=== PATIENT | female | born 1990 | race Caucasian/White ===

== ENCOUNTER 2017-01-19 19:38 | Emergency (ER) | payer MEDICAID ==
[~2017-01-19] VITALS: Ht 182.9 cm; Wt 92.6 kg
[~2017-01-19 19:38] MED LIST: HYDR25CA PO; TRAZ100T15 PO
[2017-01-19 19:51] VITALS: BP 155/98
== END 2017-01-19 20:57 | disposition home or self-care (01) ==
LOC: ED 20:49
DX: J00 Acute nasopharyngitis [common cold] (principal); J02.9 Acute pharyngitis, unspecified; F41.1 Generalized anxiety disorder; I10 Essential (primary) hypertension
CPT/HCPCS: 99283

== ENCOUNTER 2017-04-29 15:21 | Emergency (ER) | payer MEDICAID ==
[~2017-04-29] VITALS: Ht 182.9 cm; Wt 90.2 kg
[2017-04-29 15:23] VITALS: BP 131/86
[2017-04-29] MEDS ORDERED: TRAZ100T15 PO (15:35)
[2017-04-29] MEDS ORDERED: HYDR25CA PO (15:35)
[2017-04-29] MEDS ORDERED: CEFAZOLIN 1,000 MG ONE ×2 (15:47→15:49)
[2017-04-29] MEDS ORDERED: HYDROcodone/APAP 5/325 TABLET ONE (15:47)
[2017-04-29] MEDS ORDERED: LIDOCAINE 1%, 20ML ONE (15:47)
[2017-04-29] MEDS ORDERED: CEFAZOLIN 1,000 MG IM ONE (16:00)
[2017-04-29] MEDS ORDERED: LIDOCAINE 1%, 20ML SQ ONE (16:00)
[2017-04-29] MEDS ORDERED: HYDROcodone/APAP 5/325 TABLET PO ONE (16:00)
== END 2017-04-29 17:00 | disposition home or self-care (01) ==
LOC: ED 16:30
DX: L02.512 Cutaneous abscess of left hand (principal); I10 Essential (primary) hypertension; F17.210 Nicotine dependence, cigarettes, uncomplicated
CPT/HCPCS: 10060; 96372; 99284; J0690; J3490